=== PATIENT | female | born 1935 | race Two or more races ===

== ENCOUNTER 2016-10-11 04:04 | Inpatient (IN) | payer MEDICARE, OTHER ==
[~2016-10-11] VITALS: Ht 162.6 cm; Wt 61.2 kg
--- NOTE | 2016-10-11 04:10 | NUR ---
To bed 7 a 81 yo female bibra with c/o of n/v since 3am. Per family patient also had diarrhea at home. Patient is aaox2 and reported that she is also feeling dizzy. Denies any pain. Breathing even and unlabored. VSS. Afebrile. Initiated comfort measures. Awaiting for er md baez.
--- NOTE | 2016-10-11 04:13 | NUR ---
Dr Cho at bedside for eval.
[2016-10-11] MEDS ORDERED: IV SET PRIMARY 1 EA INFUS.SET MC ONE (04:17)
[2016-10-11] MEDS ORDERED: ONDANSETRON HCL/PF 4 MG/2 ML VIAL ONE (04:17)
[2016-10-11] MEDS ORDERED: IV NS 0.9% 500 ML IV ONE ×2 (04:17→05:12)
--- NOTE | 2016-10-11 04:25 | NUR ---
Medicated patient as ordered by Dr Cho.
[2016-10-11] MEDS ORDERED: IV NS 0.9% 500 ML BAG IV ONE ×2 (04:30→05:30)
[2016-10-11] MEDS ORDERED: ONDANSETRON HCL/PF 4 MG/2 ML VIAL IVP ONE (04:30)
--- NOTE | 2016-10-11 04:50 | NUR ---
lab at bedside to draw blood.
--- NOTE | 2016-10-11 04:51 | NUR ---
xr tech at bedside.
[2016-10-11 05:02] LABS: BASOPHILS % (AUTO) 0.3 % (0.0-2.0); EOSINOPHILS % (AUTO) 0.8 % (0.0-6.0); HEMATOCRIT 43 % (33-45); HEMOGLOBIN 14.1 g/dL (11.5-14.8); MEAN CORPUSCULAR HEMOGLOBIN 30 PG (26.0-33.0); MEAN CORPUSCULAR HGB CONC 33 g/dl (31.0-36.0); MEAN CORPUSCULAR VOLUME 91 fL (82-100); MONOCYTES # (AUTO) 0.3 /CMM (0.1-1.30); MONOCYTES % (AUTO) 5.2 % (2.0-12.0); NEUTROPHILS % (AUTO) 77.7 % (43.0-81.0); PLATELET COUNT (AUTO) 212 /CMM (150-450); RDW COEFFICIENT OF VARIATION 14.3 (11.5-15.0); RED BLOOD CELL COUNT(AUTO) 4.72 MIL/uL (4.0-5.2); WHITE BLOOD COUNT (AUTO) 6.4 K/uL (4.3-11.0)
[2016-10-11 05:17] LABS: CALCIUM, SERUM 8.8 mg/dL (8.5-10.1); CARBON DIOXIDE 28 mmol/L (21-32); CHLORIDE 109 mmol/L (98-107); CREATININE 0.9 mg/dL (0.6-1.3); GLUCOSE 154 mg/dL (74-106); POTASSIUM 4.5 mmol/L (3.5-5.1); SODIUM SERUM 143 mmol/L (136-145); UREA NITROGEN, BLOOD 30 mg/dL (7-18)
[2016-10-11 05:20] LABS: TROPONIN I < 0.017 ng/mL (0.00-0.056)
[2016-10-11 05:23] LABS: ALANINE AMINOTRANSFERASE 20 U/L (12-78); ALBUMIN 3.2 g/dL (3.4-5.0); ALKALINE PHOSPHATASE 88 U/L (46-116); ASPARTATE AMINOTRANSFERASE 11 U/L (15-37); BILIRUBIN,DIRECT 0.1 mg/dL (0.0-0.2); BILIRUBIN,TOTAL 0.4 mg/dL (0.2-1.0); LIPASE 94 U/L (73-393); TOTAL PROTEIN, SERUM 6.6 g/dL (6.4-8.2)
[2016-10-11] MEDS ORDERED: MECLIZINE HCL 25 MG TABLET ONE (05:27)
[2016-10-11] MEDS ORDERED: MECLIZINE HCL 25 MG TABLET PO ONE (05:30)
[2016-10-11] MEDS ORDERED: DIAZEPAM 5 MG/ML 2 ML DISP.SYRIN ONE (06:12)
[2016-10-11] MEDS ORDERED: DIAZEPAM 5 MG/ML 2 ML DISP.SYRIN IV ONE (06:30)
[2016-10-11 06:44] LABS: APPEARANCE,URINE SL CLOUDY (CLEAR); BILIRUBIN,URINE NEGATIVE (NEGATIVE); BLOOD, URINE TRACE-INTA Ery/uL (NEGATIVE); COLOR,URINE YELLOW (YELLOW); KETONES,URINE TRACE (NEGATIVE); LEUKOCYTE ESTERASE ,URINE TRACE (NEGATIVE); NITRITE, URINE NEGATIVE (NEGATIVE); PH,URINE 6.5 (5.0-8.0); PROTEIN,URINE NEGATIVE (NEGATIVE); UGLUCOSE NEGATIVE (NEGATIVE); UROBILINOGEN,URINE 0.2 EU/dL (0.2)
[2016-10-11] MEDS ORDERED: MEMA10TA PO (07:18)
[2016-10-11 07:19] LABS: ADD URINE CULTURE NO; BACTERIA,URINE 1+ /HPF (None Seen); MUCUS,URINE Few /LPF (None Seen); RBC,URINE 0-2 /HPF (0-2); SQUAMOUS EPITHELIAL CELL,UR Few /HPF (None Seen); WBC,URINE 0-2 /HPF (0-3)
--- NOTE | 2016-10-11 07:19 | NUR ---
Report given to Daniel LAMBERT for bridger.
[2016-10-11] MEDS ORDERED: MEMA28CA PO (07:45)
[2016-10-11 08:00] VITALS: BP 129/70
--- NOTE | 2016-10-11 08:00 | NUR ---
TELE RENEWABLE ENERGY ENGINEER: ADMISSION ADMITTED THIS 81 YR OLD FEMALE PT FROM [facility] WITH DX: INTRACTABLE DIZZINESS AND VERTIGO. AWAKE, A/OX3 WITH FORGETFULNESS. NO C/O N/V/D, CHEST PAIN, BUT STILL C/O DIZZINESS. DR. HARRY AT BEDSIDE ASSESSING PT. FAMILY AT BEDSIDE (SON AND ). ORIENTED TO ROOM AND SURROUNDINGS. VSS. BREAKFAST ORDERED. PT WEARING OWN GOWN, PT REFUSED TO SKIN ASSESSMENT, BUT DENIES ANY SKIN BREAKDOWN. INSTRUCTED TO CALL FOR ASSISTANCE. IN NO APPARENT DISTRESS NOTED. WILL CONTINUE TO MONITOR.
[2016-10-11] MEDS ORDERED: ACETAMINOPHEN 325 MG TABLET PO PRN (08:30)
[2016-10-11] MEDS ORDERED: MAGNESIUM HYDROXIDE 30 ML UDC PO PRN (08:30)
[2016-10-11] MEDS ORDERED: ZOLPIDEM TARTRATE 5 MG TABLET PO PRN (08:30)
[2016-10-11] MEDS ORDERED: DIAZEPAM 5 MG TABLET PO PRN (08:30)
[2016-10-11] MEDS ORDERED: Z GUARD REMEDY 2 OZ OINT TP PRN (08:30)
[2016-10-11] MEDS ORDERED: ONDANSETRON HCL/PF 4 MG/2 ML VIAL IVP PRN (08:30)
[2016-10-11] MEDS ORDERED: MAG HYDROX/AL HYDROX/SIMETH 30 ML UDC PO PRN (08:30)
[2016-10-11] MEDS ORDERED: MECLIZINE HCL 12.5 MG TABLET PO PRN (08:30)
[2016-10-11] MEDS ORDERED: IV SET PRIMARY PUMP SET 1 EA INFUS.SET MC ONE (09:55)
[2016-10-11] MEDS: IV NS 0.9% 1,000 ML IV PRN (10:06)
[2016-10-11 11:10] VITALS: BP_SYST 115; BP_SYST 118; BP_SYST 126; BP_DIAS 79; BP_DIAS 81
--- NOTE | 2016-10-11 11:10 | NUR ---
tele compression molding machine tender: neuro consult seen and examined by dr. rodriguez at this time. ortho static b/p done per neurologist. instructed to call for assistance. will continue to monitor.
--- NOTE | 2016-10-11 13:40 | NUR ---
m/s pediatrician/medical doctor: notes received order for cta brain and carotid. son here and made aware and consented. son translated to pt and made aware.
[2016-10-11] MEDS ORDERED: IV NS 0.9% 250 ML IV ONE ×2 (13:57→15:26)
[2016-10-11] MEDS ORDERED: CT SWABBABLE VALVE TRANS SET 1 EA INFUS.SET MC ONE ×2 (13:58→15:26)
[2016-10-11] MEDS ORDERED: IOHEXOL-350 100 ML VIAL IV ONE ×2 (13:58→15:26)
--- NOTE | 2016-10-11 14:00 | NUR ---
tele bereavement counselor: notes radiologic tech here to check iv h/l and also primary nurse assessed iv to left wrist gauge #18; iv site to left wrist patent with no s/s of infiltration.
--- NOTE | 2016-10-11 14:30 | NUR ---
m/s clinical assoc: notes pt brought down to radiology dept for cta brain and carotid, but returned due to machine is broken. cn made aware. family accompanied pt and aware.
--- NOTE | 2016-10-11 14:57 | NUR ---
CT SCANNER IS DOWN. PT MAY TRANSFER TO [facility], RN WILL CALL.
--- NOTE | 2016-10-11 15:20 | NUR ---
m/s playground attendant: notes pt needs to be transported to [place] radiology dept due to stat cta brain and carotid that was arranged by case management and approved by administration. cn made aware. kyo (radiology) notified and made aware. pt, son, and made aware and verbalized understanding.
[2016-10-11] MEDS: ASPIRIN EC 81 MG TABLET.DR PO SCH (15:26)
--- NOTE | 2016-10-11 15:45 | NUR ---
m/s legal paraprofessional: notes radiology dept provided iv ns of 250ml, iv tubing and contrast med. awaiting transportation. remains at bedside.
--- NOTE | 2016-10-11 15:55 | NUR ---
tele purchasing analyst: notes ambulance here and report given to one of the crew.
[2016-10-11 16:00] VITALS: BP 124/78
--- NOTE | 2016-10-11 16:05 | NUR ---
tele interpreter and translator: notes tele removed and given to tech. pt left via ambulance with papers (consent), iv tubing, contrast med, and iv ns of 250ml. cn aware.
--- NOTE | 2016-10-11 17:25 | NUR ---
m/s fire controlman: notes pt back from [facility] radiology dept via [place]. awake, a/ox3. family at bedside. noted with new iv to right forearm, guage #20. iv to left wrist still there. dinner served. pt denies any dizziness, chest pain, sob, or any discomfort at this time. instructed to call for assistance. will continue to monitor.
--- NOTE | 2016-10-11 18:00 | NUR ---
m/s rn rehabilitation: notes pt done with dinner. check iv to left wrist with normal with another nurse and pt c/o pain at site. photo taken to iv site before and after removed. ice pack applied to site. instructed to call for assistance. will continue to monitor.
--- NOTE | 2016-10-11 18:50 | NUR ---
tele hot wound spring production supervisor: notes family left at this time. pt in bed resting comfortable. needs attended. no apparent distress noted. call light within reach. will continue to monitor.
[2016-10-11 19:00] VITALS: BP 147/83
--- NOTE | 2016-10-11 19:30 | NUR ---
RN NOTE; RECEIVED PT IN BED AWAKE AND CONFUSED, CONSTANTLY GETTING OUT OF BED. NO IV SITE NOTED AT THIS TIME! PROBABLY REMOVED BY PT? PT ALSO HAS REMOVED HER HEART . PT WAS PLACED ON HEART MONITOR READING SR W/ GER. BREATHING EVENLY . NO SOB. NO C/O DIZZINESS. NEEDS ATTENDED .CALL LIGHT WITHIN REACH. WILL CONT TO MONITOR . Addendum: 10/11/16 at 2035 by GUCCI ROSENBERG RN WRONG DOCUMENTATION: TELE READING: .
[2016-10-11 20:00] VITALS: BP 147/83
--- NOTE | 2016-10-11 21:20 | NUR ---
PT CONSTANTLY GETTING OUT OF BED AGITATED AND WILLING TO GO HOME. SON HERE AT THE BED SIDE . SPOKE TO THE PT, REORIENTED HER AND TRIED TO CALM HER DOWN ATTEMPTING TO LIMIT SEDATING MEDS. UNSUCCESSFUL. AMBIEN GIVEN PER FAMILY REQUEST. WILL CONT TO MONITOR .
--- NOTE | 2016-10-11 22:10 | NUR ---
VALIUM GIVEN FOR C/O DIZZINESS. WILL CONT TO MONITOR
[2016-10-12] VITALS: BP 136/66
[2016-10-12] MEDS ORDERED: IV SET PRIMARY PUMP SET 1 EA INFUS.SET MC ONE (00:22)
[2016-10-12] MEDS: IV NS 0.9% 1,000 ML IV PRN (00:26)
--- NOTE | 2016-10-12 04:48 | NUR ---
PT CONSTANTLY REMOVING HER IV LINE AND HER HEART MONITOR . GETS OUT OF BED AND UNSAFE. INFORMED DR. TREVINO W/ A NEW ORDER FOR A 1:1 SITTER FOR SAFETY AND FALL RISK.
--- NOTE | 2016-10-12 06:08 | NUR ---
RN NOTE; PT IN BED AWAKE AND ALERT, CONFUSED. BREATHING EVENLY. NO SOB. NO DISTRESS. NO MORE C/O DIZZINESS, NO C.O PAIN OR DISCOMFORT. REMAINED UNDER CLOSE SUPERVISION FOR SAFETY AND FALL RISK. NEEDS ATTENDED . CALL LIGHT WITHIN REACH, WILL CONT TO MONITOR AND WILL ENDORSE TO AM SHIFT FOR ALISON.
[2016-10-12 06:30] VITALS: BP 147/76
[2016-10-12] MEDS ORDERED: PANTOPRAZOLE 40 MG TABLET.DR PO SCH (07:30)
--- NOTE | 2016-10-12 07:30 | NUR ---
MS/ RN OPENING NOTE PT. IS WITH A 1:1 SITTER, LYING IN BED SLEEPING. NO S/S OF DISTRESS, NO SOB, BREATHING ON ROOM AIR, EVEN AND UNLABORED. PT. HAS A KERLIX WRAPPED AROUND LEFT WRIST TO PROTECT IV SITE. A WALKER AND BATHROOM COMMODE IS NEAR BEDSIDE PT. BED IS IN LOW POSITION, 2 SIDE RAILS UP, AND CALL LIGHT IS WITHIN REACH.
[2016-10-12 08:00] VITALS: BP 143/66
[2016-10-12 08:16] LABS: BASOPHILS % (AUTO) 0.5 % (0.0-2.0); EOSINOPHILS # (AUTO) 0.1 /CMM (0.0-0.7); EOSINOPHILS % (AUTO) 1.6 % (0.0-6.0); HEMATOCRIT 43 % (33-45); HEMOGLOBIN 14.4 g/dL (11.5-14.8); LYMPHOCYTES # (AUTO) 1.5 /CMM (0.8-4.8); LYMPHOCYTES % (AUTO) 31.4 % (20.0-44.0); MEAN CORPUSCULAR HEMOGLOBIN 30 PG (26.0-33.0); MEAN CORPUSCULAR HGB CONC 33 g/dl (31.0-36.0); MEAN CORPUSCULAR VOLUME 90 fL (82-100); MONOCYTES # (AUTO) 0.4 /CMM (0.1-1.30); MONOCYTES % (AUTO) 7.7 % (2.0-12.0); NEUTROPHILS # (AUTO) 2.8 /CMM (1.8-8.9); NEUTROPHILS % (AUTO) 58.8 % (43.0-81.0); PLATELET COUNT (AUTO) 248 /CMM (150-450); RDW COEFFICIENT OF VARIATION 14.1 (11.5-15.0); RED BLOOD CELL COUNT(AUTO) 4.83 MIL/uL (4.0-5.2); WHITE BLOOD COUNT (AUTO) 4.8 K/uL (4.3-11.0)
[2016-10-12 08:46] LABS: ALBUMIN 3.1 g/dL (3.4-5.0); BILIRUBIN,TOTAL 0.4 mg/dL (0.2-1.0); CALCIUM, SERUM 8.6 mg/dL (8.5-10.1); CHOLESTEROL 277 mg/dL (<200); CREATININE 0.7 mg/dL (0.6-1.3); HDL CHOLESTEROL 49 mg/dL (40-60); LDL 203 mg/dL (0-99); MAGNESIUM 1.9 mg/dL (1.8-2.4); PHOSPHORUS 3.7 mg/dL (2.5-4.9); POTASSIUM 3.6 mmol/L (3.5-5.1); TOTAL PROTEIN, SERUM 6.5 g/dL (6.4-8.2); TRIGLYCERIDES 114 mg/dL (30-150)
[2016-10-12 08:58] LABS: THYROID STIMULATING HORMONE 3.403 uIU/mL (0.358-3.74)
[2016-10-12] MEDS: ASPIRIN EC 81 MG TABLET.DR PO SCH (09:08)
[2016-10-12 12:00] VITALS: BP 137/71
[2016-10-12 16:00] VITALS: BP 137/71
--- NOTE | 2016-10-12 18:30 | NUR ---
MS/RN PT. LEFT HOSPITAL AGAINST MEDICAL ADVICE SON INSISTING NOT TO HAVE HIS MOTHER STAY OVERNIGHT, AND WANTS TO GO AGAINST MEDICAL ADVICE. CHARGE NURSE AWARE. KEYONA FLORES WAS NOTIFIED AND DOES NOT WANT TO DISCHARGE PATIENT WITHOUT CLEARANCE FROM NEUROLOGIST. DR. JARQUIN WAS PAGED BUT NO RESPONSE. SON WAS MADE AWARE BUT WAS STILL INSISTING. SON WAS PROVIDED DISCHARGE PAPERS, AND AGAINST MEDICAL ADVICE FORMS. PT. SIGNED AMA PAPERS, BELONGINGS LIST, AND DISCHARGE INSTRUCTIONS. SON WAS PROVIDED INSTRUCTIONS TO HAVE HIS MOTHER FOLLOW UP WITH HER PRIMARY CARE PROVIDER SOON POSSIBLE. IV, AND ID BAND WAS REMOVED. PT. LEFT [facility] IN A WHEELCHAIR WITH AND SON ACCOMPANIED BY A CARD TABLE ATTENDANT.
[2016-10-12] MEDS ORDERED: ATORVASTATIN 10 MG TABLET PO SCH (22:00)
[2016-10-13] MEDS ORDERED: NAMENDA 28 MG PO SCH (09:00)
[2016-10-13] MEDS ORDERED: MEMANTINE HCL 5 MG TABLET PO SCH (09:00)
== END 2016-10-12 18:54 | disposition left against medical advice (07) | DRG 391 ==
LOC: ER 04:06 → MED 07:27 → TELE 08:08 → MED 10-12 10:06
PROVIDERS: ADMIT Family Medicine; ATTEND Family Medicine
DX: A08.4 Viral intestinal infection, unspecified (principal); N17.0 Acute kidney failure with tubular necrosis; I95.1 Orthostatic hypotension; H81.10 Benign paroxysmal vertigo, unspecified ear; Z86.73 Personal history of transient ischemic attack (TIA), and cerebral infarction without residual deficits; I10 Essential (primary) hypertension; F03.90 Unspecified dementia, unspecified severity, without behavioral disturbance, psychotic disturbance, mood disturbance, and anxiety; D18.09 Hemangioma of other sites; I70.0 Atherosclerosis of aorta; K57.30 Diverticulosis of large intestine without perforation or abscess without bleeding; N20.0 Calculus of kidney; N28.1 Cyst of kidney, acquired
CPT/HCPCS: 36415; 70450-TC; 70496-TC; 70498-TC; 71010-TC; 80048-TC; 80053-TC; 80061-TC; 80076-TC; 81000-TC; 83690-TC; 83735-TC; 84100-TC; 84443-TC; 84484-TC; 85025-TC; 87081-TC; 93307-TC; 97001-TC; 97116-TC; 97530-TC; A4606; J2405; J3360; J7030; J7040; J7050; J8597; Q9967; Z7610